=== PATIENT | female | born 1980 | race Caucasian/White ===

== ENCOUNTER 2021-04-04 10:09 | Day surgery (SDC) | payer OTHER ==
[2021-04-01 10:48] LABS: Absolute Lymphocytes (CBC) 1.8 K/uL (0.7-4.9); Basophils % 1.3 % (0-1.3); Hematocrit 36.7 % (36.0-45.0); Lymphocytes % 26.5 % (15.3-44.8); RBC Red Blood Cell Count 4.05 M/uL (3.86-4.86)
[2021-04-04] MEDS ORDERED: Ringers Lactate 1,000 ML IV ONE (10:39)
[2021-04-04] MEDS ORDERED: LIDOCAINE 2% MPF 5 ML VIAL ONE (11:02)
[2021-04-04] MEDS ORDERED: KETOROLAC 30 MG/ML INJ ONE (11:02)
[2021-04-04] MEDS ORDERED: ONDANSETRON 4 MG/2 ML VIAL ONE (11:02)
[2021-04-04] MEDS ORDERED: MIDAZOLAM HCL 2 MG/2 ML INJ ONE (11:02)
[2021-04-04] MEDS ORDERED: FENTANYL CITR 100 MCG/2 ML ONE (11:02)
[2021-04-04] MEDS ORDERED: propofoL 200 MG/20 ML VIAL IV ONE (11:02)
[2021-04-04] MEDS ORDERED: CEFAZOLIN/SWI 1gm 0 GM/0 ML SYR ONE (11:24)
--- NOTE | 2021-04-04 11:36 | P.BOP ---
Preoperative diagnosis: left cts Postoperative diagnosis: same Primary procedure: left open ctr Estimated blood loss: 10ccs Anesthesia: General Complications: None Transferred to: Recovery Room Condition: Good
[2021-04-04] MEDS: MEPERIDINE HCL 25 MG/ML SYR ONE ×2 (11:52→11:57)
[2021-04-04] MEDS ORDERED: HYDROCODONE/APAP 7.5/325 MG TAB ONE (12:58)
[2021-04-04 13:45] VITALS: O2SAT 100
[2021-04-04 13:54] VITALS: BP 115/70; TEMP 97.3
--- NOTE | 2021-04-04 21:55 | OP ---
Date of Procedure: 04/04/2021 Surgeon: Sonny Garrison MD Postoperative Diagnosis: Left carpal tunnel syndrome. Postoperative Diagnosis: Left carpal tunnel syndrome. Procedure: Left open carpal tunnel release. Estimated Blood Loss: 10 cc. Complications: None. Pathology Specimen: No pathology specimens sent. Indications For Operation: Ms. Oshea is a patient who came to see me with complaints of an establish ed history of bilateral carpal tunnel syndrome. She has had injections in the carpal tunnel in the p ast and was requesting repeated ones. These were usually just temporarily helpful in my experience, however, she has tried other conservative care. We did inject her carpal tunnel, although she did no t have any significant relief as she has gotten less results from each injection according to her his tory. Risks, benefits, and alternatives of different methods of treatments including the possibility of endoscopic carpal tunnel release for open have been discussed with her. She states she understan ds things as presented. At this time, we opted for open carpal tunnel release on the left. All of h er questions were answered. Description Of Procedure: The patient was taken to the operating room and placed in supine position. General anesthesia was obtained by the staff. Following this, well-padded tourniquet was placed on superior left arm. The left upper extremity was then prepped and draped in the usual fashion for pr justin. Following this, the arm was then elevated, but not exsanguinated. Tourniquet was raised. Incision was made parallel to the thenar crease with an ulnar deviation at the most distal wrist crea se. This was taken down very carefully through skin. Only meticulous hemostasis being maintained us ing bipolar electrocautery. This leads down to the palmar fascia, which was divided longitudinally. Any obstructions of the transverse carpal ligament were then slipped to the side and a small drake wa s made in the transverse carpal ligament, which allowed for placement of a [place] elevator and the tra nsverse carpal ligament was then divided in a very careful fashion from proximal to distal until ther e are no constricting bands. This was followed in a distal to proximal direction until there were no constricting bands including a fairly significant amount of volar forearm fascia. After this was fo und to be no significant bleeding and the contents were found to be in continuity, the tourniquet was then released. She did have some bleeding most likely from venous pressures from the tourniquet, bu t this was controlled using direct pressure and the skin was closed using interrupted nylon sutures. She was then placed in a well-padded sterile dressing, awakened, and taken to recovery room in good condition. No complications. SE/MODL Voice ID: [id number] Report ID: [id number]
== END 2021-04-04 14:00 | disposition home or self-care (01) ==
LOC: OR 10:09
PROVIDERS: ATTEND Orthopaedic Surgery
PROC: 01N50ZZ Release Median Nerve, Open Approach (ICD-10-PCS; principal; 2021-04-04 11:00)
DX: G56.02 Carpal tunnel syndrome, left upper limb (principal); Z20.822 Contact with and (suspected) exposure to COVID-19
CPT/HCPCS: 85025; 80048; 36415; 81025; 64721; U0003; J2704; J2250; J3010; J2175; J7120; J2405; J0690

== ENCOUNTER 2021-08-19 06:32 | Day surgery (SDC) | payer OTHER ==
[2021-08-19] MEDS ORDERED: Ringers Lactate 1,000 ML IV ONE (07:22)
[2021-08-19] MEDS ORDERED: MIDAZOLAM HCL 2 MG/2 ML INJ ONE (07:29)
[2021-08-19] MEDS ORDERED: LIDOCAINE 1% MPF 5 ML VIAL ONE (07:29)
[2021-08-19] MEDS ORDERED: propofoL 200 MG/20 ML VIAL IV ONE ×2 (07:29→08:28)
[2021-08-19] MEDS ORDERED: FENTANYL CITR 100 MCG/2 ML ONE (07:29)
[2021-08-19] MEDS ORDERED: NA CHLORIDE 0.9% 1,000 ML ONE (07:36)
[2021-08-19] MEDS: LIDOCAINE 1% W/EPI 1:100,000 MDV 20 ML VIAL ONE ×2 (08:01→08:08)
[2021-08-19] MEDS ORDERED: CELECOXIB 100 MG CAPSULE ONE (08:13)
[2021-08-19] MEDS ORDERED: ACETAMINOPHEN 500 MG TAB ONE (08:14)
--- NOTE | 2021-08-19 08:28 | P.BOP ---
Preoperative diagnosis: AUB-O/A, dysmenorrhea Postoperative diagnosis: same Primary procedure: hysteroscopy d/c Horse Racer: NONE,NONE Estimated blood loss: min Specimen: EMC Findings: thick anterior wall, no masses, undistorted anteflexed, small cavity Anesthesia: MAC (and PCB) Complications: None Transferred to: Recovery Room Condition: Good
[2021-08-19 09:05] VITALS: BP 113/60
[2021-08-19 09:08] VITALS: TEMP 97.9; O2SAT 96
--- NOTE | 2021-08-19 12:54 | OP ---
Date of Procedure: 08/19/2021 Surgeon: Felipa Francis MD Preoperative Diagnoses: Menorrhagia, dysmenorrhea, dyspareunia. Postoperative Diagnoses: Menorrhagia, dysmenorrhea, dyspareunia. Procedures Performed: Hysteroscopy, D and C. Anesthesia: MAC plus paracervical block. Specimens: Endometrial curettings. Estimated Blood Loss: Minimal. Complications: No complications. Drains: No drains. Condition: Stable. Findings: Undistorted, anteflexed small cavity, thick anterior wall, endometrium. No intracavitary masses. Adequate sampling obtained. The patient's condition is good. Procedure In Detail: After informed consent was verified, the patient was taken back to OR, placed i n supine fashion on the operating table. MAC was given and then she was placed in a dorsal lithotomy position. The patient received a dose of Celebrex preoperatively. No other NSAIDs were given durin g the surgery. After she was placed in a dorsal lithotomy position using Rafy stirrups, pelvic exam was performed. Uterus was anteflexed, small in size. No adnexal masses were palpable. Vulva and v agina were prepped with Betadine. Speculum was placed to expose the cervix. Paracervical block was given with 1% lidocaine mixed with 1:100,000 epinephrine at 12 o'clock on the cervix and at the 4 and 8 o'clock positions of the cervicovaginal junction for a paracervical block. Two Allises were place d on the anterior lip to grasp the cervix. Diagnostic SlimLine hysteroscope passed through the cervi mahesh canal into the uterine cavity under direct vision. Thick anterior wall, no intracavitary masses, undistorted cavity. Scope was pulled out. Endometrial curettings were performed with 0 curette. Sia kaba sent out for permanent pathology. All instruments were removed. Instrument, needle, and spo nge counts were correct at the end of the case. The patient tolerated the procedure well. She will come back to the office review of pathology results. Then, we will discuss about further options mos t likely. An ablation is a good alternative for this patient, but given her dysmenorrhea and dyspare unia possibly combining it with the laparoscopy for possible endo treatment. This probably at least invasive most optimal option and IUD could be used instead of an ablation as well depending on the pa tient's desires. JOJO/ASHLEY Voice ID: [id number] Report ID: [id number]
== END 2021-08-19 09:03 | disposition home or self-care (01) ==
LOC: OR 06:32
PROVIDERS: ATTEND Obstetrics & Gynecology
PROC: 0UJD8ZZ Inspection of Uterus and Cervix, Via Natural or Artificial Opening Endoscopic (ICD-10-PCS; 2021-08-19)
PROC: 0UDB7ZX Extraction of Endometrium, Via Natural or Artificial Opening, Diagnostic (ICD-10-PCS; principal; 2021-08-19 07:30)
DX: N92.0 Excessive and frequent menstruation with regular cycle (principal); N94.6 Dysmenorrhea, unspecified; N94.10 Unspecified dyspareunia; N64.4 Mastodynia; R73.03 Prediabetes; R19.09 Other intra-abdominal and pelvic swelling, mass and lump; Z20.822 Contact with and (suspected) exposure to COVID-19
CPT/HCPCS: 81025; 88305; 58558; U0003; J2704 ×2; J2250; J3010; J7120; J7030

== ENCOUNTER 2021-10-07 08:39 | Day surgery (SDC) | payer OTHER ==
[2021-10-03 11:55] LABS: Urine Appearance CLEAR (Clear); Urine Bilirubin NEGATIVE (Negative); Urine Blood NEGATIVE (Negative); Urine Color YELLOW (Yellow); Urine Glucose NEGATIVE (Negative); Urine Protein NEGATIVE (Negative); Urine Specific Gravity <=1.005 (1.005-1.030); Urine Urobilinogen 0.2 mg/dL (0.2-1.0)
[2021-10-03 11:56] LABS: Urine Microscopic Reflex NO UMIC
[2021-10-03 11:57] LABS: Absolute Lymphocytes (CBC) 2.1 K/uL (0.7-4.9); Basophils % 1.2 % (0-1.3); Lymphocytes % 33.9 % (15.3-44.8); MPV 9.3 fL (7.6-11.3); RBC Red Blood Cell Count 4.17 M/uL (3.86-4.86)
[2021-10-07 08:54] LABS: Specific Gravity 1.015 (1.005-1.030)
[2021-10-07] MEDS ORDERED: LIDOCAINE 1% MPF 5 ML VIAL ONE (08:59)
[2021-10-07] MEDS ORDERED: MIDAZOLAM HCL 2 MG/2 ML INJ ONE (08:59)
[2021-10-07] MEDS ORDERED: FENTANYL CITR 250 MCG/5 ML ONE (08:59)
[2021-10-07] MEDS ORDERED: dexAMETHasone 10 MG/ML VIAL ONE (08:59)
[2021-10-07] MEDS ORDERED: propofoL 200 MG/20 ML VIAL IV ONE (08:59)
[2021-10-07] MEDS ORDERED: ROCURONIUM 50 MG/5 ML VIAL IV ONE (09:05)
[2021-10-07] MEDS ORDERED: ONDANSETRON 4 MG/2 ML VIAL ONE ×2 (09:05→12:55)
[2021-10-07] MEDS ORDERED: Ringers Lactate 1,000 ML IV ONE ×2 (09:09→11:37)
[2021-10-07] MEDS ORDERED: SCOPOLAMINE HYDROBROMIDE PATCH TD ONE (09:09)
[2021-10-07] MEDS ORDERED: CEFAZOLIN/SWI 2gm 2 GM/20 ML SYR ONE (09:09)
[2021-10-07] MEDS ORDERED: ACETAMINOPHEN 500 MG TAB ONE (09:37)
[2021-10-07] MEDS ORDERED: CELECOXIB 100 MG CAPSULE ONE (09:37)
[2021-10-07] MEDS ORDERED: BUPIVACAINE 0.25% PF 30 ML VIAL ONE (10:15)
[2021-10-07] MEDS ORDERED: NA CHLORIDE 0.9% 1,000 ML ONE (10:15)
[2021-10-07] MEDS ORDERED: BUPIVACAINE 0.5% Inj,MDV 50 mL VIAL ONE (10:47)
[2021-10-07] MEDS ORDERED: NS 0.9% VIAL 20 ML ONE (11:43)
[2021-10-07] MEDS ORDERED: VASOPRESSIN 20 UNIT/ML VIAL ONE (11:44)
[2021-10-07] MEDS ORDERED: KETOROLAC 30 MG/ML INJ ONE (11:51)
[2021-10-07] MEDS ORDERED: Mastisol Adhesive Liq ONE (12:16)
[2021-10-07] MEDS ORDERED: MEPERIDINE HCL 25 MG/ML SYR IM PRN (12:20)
[2021-10-07] MEDS ORDERED: PROMETHAZINE INJ 25 MG/ML AMP IV PRN (12:20)
[2021-10-07] MEDS ORDERED: HYDROCODONE/APAP 5/325 MG TAB PO PRN (12:20)
--- NOTE | 2021-10-07 12:28 | P.BOP ---
Preoperative diagnosis: menorrhagia, dysmenorrhea,adnexal mass Postoperative diagnosis: same, leiomyoma, sigmoid and cecal adhesions Primary procedure: Hystsc Endometrial Ablation/ lapsc bilat salpingectomy Secondary procedure: lapsc myomectomyx1, OSITO sigmoid Bellhop: Lin Paul Estimated blood loss: min Specimen: leiomyoma, bilat tubes Findings: normal b/l tubes/ovaries,ant fundal L leiomyoma subserosal,no endo Anesthesia: General Complications: None Fluids & blood products: UO 200 Transferred to: Recovery Room Condition: Good
[2021-10-07] MEDS ORDERED: MEPERIDINE HCL 25 MG/ML SYR ONE ×2 (12:47→13:17)
[2021-10-07] MEDS: MORPHINE 4 MG/ML SYR ONE ×2 (12:57→13:02)
[2021-10-07 13:56] VITALS: TEMP 97.5
[2021-10-07] MEDS ORDERED: HYDROCODONE/APAP 5/325 MG TAB ONE (15:06)
[2021-10-07] MEDS ORDERED: HYDROCODONE/APAP 5/325 MG TAB PO ONE (15:10)
[2021-10-07 16:06] VITALS: BP 130/68; O2SAT 98
[2021-10-07] MEDS ORDERED: GABAPENTIN 300 MG CAP PO SCH (21:00)
[2021-10-07] MEDS ORDERED: clonazePAM 0.5 MG TAB PO SCH (21:00)
[2021-10-07] MEDS ORDERED: ZOLPIDEM TARTRATE 12.5 MG PO SCH (21:00)
[2021-10-08] MEDS ORDERED: SERTRALINE HCL 50 MG TAB PO SCH (09:00)
[2021-10-08] MEDS ORDERED: DRISDOL (VITAMIN D=ERGOCALCIFEROL) 50000 UNIT CAP PO SCH (09:00)
[2021-10-08] MEDS ORDERED: HOME MED 1 EA UNK (Multivitamin [Multivitamin] Tablet) PO SCH (09:00)
[2021-10-08] MEDS ORDERED: LISDEXAMFETAMINE DIMESYLATE 40 MG PO SCH (09:00)
--- NOTE | 2021-10-10 09:38 | OP ---
Date of Procedure: 10/07/2021 Surgeon: Felipa Francis MD Nonprofit Director: Lin Paul. Preoperative Diagnoses: Menorrhagia, dysmenorrhea, and adnexal mass. Postoperative Diagnoses: Menorrhagia, dysmenorrhea, leiomyoma, and no adnexal mass, sigmoid and ceca l adhesions. Procedures Performed: Hysteroscopy, endometrial ablation, laparoscopy, bilateral salpingectomy and l aparoscopic myomectomy x1, lysis of adhesions of the sigmoid. Anesthesia: General endotracheal. Estimated Blood Loss: Minimal. Specimens: Leiomyoma and bilateral tubes. Findings: Normal bilateral tubes and ovaries. Anterior fundal left leiomyoma that was subserosal wa s noted and no endometriosis was noted. On endometrial ablation, the settings were a power of 132 wa tts, time of 105 seconds, length 6 cm with 4 cm. There was adequate ablation effect. Urine Output: 200. Ebl: Minimal. Condition: The patient's condition is good. Procedure In Detail: The patient was consented and taken back to OR, placed in a supine fashion on t he operating table. After 2 g of Ancef was given, she was placed in dorsal lithotomy position. Abdo men, vulva, vagina, and perineum were prepped and draped in a sterile fashion. Positioning was check ed and SCDs were started. Time-out was done. Speculum was placed to expose the cervix. Anterior lip grasped with 2 Allis clamps. The uterus was measured with the help of the ablation measurement device. The total sounding length of 9 cm, cervic al length of 3 cm was noted and then calculated the cavity length of 6 cm was entered into the kelly e and the ablation device was inserted into the uterine cavity and deployed. The width assessment wa s 4 cm. Once these settings were entered, cavity integrity test was done. Once it passed without an y problems after plugging the cervix with the occluder, the ablation cycle was started. There was an uninterrupted ablation cycle for 105 seconds. Once the machine shut off, the device was undeployed in the usual fashion. Hysteroscopy was performed with the help of a diagnostic SlimLine hysteroscope . There was excellent ablation effect in the entire cavity. Probably, the internal os was also cove red at the time of the ablation. However, no other burn at the canal. Uterine manipulator was introduced into the uterus. Lau was placed. This area was then draped. A 1 cm infraumbilical incision was made with a scalpel using the open laparoscopy technique. Fascia was incised and tagged with 0 Vicryl sutures. Peritoneum entered sharply. S-retractors were placed. Amelia introduced and after adequate insufflation, site of entry was checked and was unremarkable. Upper abdominal surfaces, no endometriosis or other lesions and adhesions. In the lower abdominal c avity, there were notable sigmoid adhesions. The appendix appeared to be unremarkable. However, the re were pericecal adhesions to the right lateral abdominal wall. No pelvic adhesions on the cecal si de. However, there were significant sigmoid adhesions in the pelvis, to the tube on the left side, t o the lateral wall, posterior cul-de-sac and the right, so the adhesions also appeared to be dense. The plan was to take the adhesions down, then take the tubes down. No evidence of any endometriosis was noted. 5 suprapubic ports were placed under direct vision. Then, the adhesions were taken down in a systematic fashion by sharp dissection, push-spread technique creating windows and ta sophia down with the help of the LigaSure as well at places to palpate. After the entire layer of adhes ions was taken down, the tube was well visualized. There was no left adnexal mass. There was only a leiomyoma on the anterior abdominal wall. The tubes were also decompress. The tubes were removed f rom the fimbriated end to the proximal end. Both of them were removed and the leiomyoma was injected with dilute vasopressin all around 20 units in 20 cc was mixed and 10 units was used. There was exc ellent hemostasis. After taking this down with the help of the LigaSure cutting and the coagulation, the area was thoroughly irrigated and it was sutured with 3-0 Monocryl suture in a figure-eight fash ion to close the superficial myometrium and the serosa. There was excellent apposition and hemostasi s and no other endometriosis noted on careful examination of the entire pelvic cavity. The specimen bag was placed through the umbilical port using a 5 camera through the side and the fibroid as well a s the tubes were retrieved through here. Thorough irrigation suction performed after hemostasis was checked. All the trocars were removed under direct vision. The bag was pulled out after the umbilic al trocar was pulled out. The fascia at the umbilicus was closed with the help of the tagged 3-0 Bill ryl sutures tied to each other. All the skin incisions were closed with the help of interrupted 3-0 chromic. Manipulator and Lau were removed. Instrument, needle, and sponge counts were correct. A t the end of the case, the patient tolerated the procedure well. She was recovered from anesthesia a nd taken to PACU in a stable condition. JOJO/ASHLEY Voice ID: [id number] Report ID: [id number]
== END 2021-10-07 15:57 | disposition home or self-care (01) ==
LOC: OR 08:39
PROVIDERS: ATTEND Obstetrics & Gynecology
PROC: 0UT74ZZ Resection of Bilateral Fallopian Tubes, Percutaneous Endoscopic Approach (ICD-10-PCS; 2021-10-07)
PROC: 0U5B8ZZ Destruction of Endometrium, Via Natural or Artificial Opening Endoscopic (ICD-10-PCS; 2021-10-07)
PROC: 0UB94ZZ Excision of Uterus, Percutaneous Endoscopic Approach (ICD-10-PCS; principal; 2021-10-07 09:30)
DX: N94.6 Dysmenorrhea, unspecified (principal); R19.09 Other intra-abdominal and pelvic swelling, mass and lump; M54.50 Low back pain, unspecified; D25.9 Leiomyoma of uterus, unspecified; Z20.822 Contact with and (suspected) exposure to COVID-19
CPT/HCPCS: 85025; 36415; 86900; 86850; 81025; 86901; 88305; 81003; 58545; 58661; 58563; U0002; J2704; J2250; J3010; J1100; J2175 ×2; J0690; J7120 ×2; J7030; J2405 ×2

== ENCOUNTER 2023-03-03 16:07 | Emergency (ER) | payer BC, OTHER ==
--- OUTSIDE RECORDS SUMMARY | 2023-03-03 16:09 | XMS REPORT | Continuity of Care Document ---
:1980 Author Organization [facility] t Address [address] [facility] [address] [place] [address] Care Team Providers Name Role Phone Unavailable Unavailable Unavailable Problems This patient has no known problems. Allergies, Adverse Reactions, Alerts This patient has no known allergies or adverse reactions. Medications This patient has no known medications. Procedures This patient has no known procedures. Encounters Start End Encounter Admission Attending Care Care Encounter Source Date/Time Date/Time Type Type Clinicians Facility Department ID 2022-09-23 Outpatient [facility] [id number] Common 15:20:01 [facility] 2022-09-16 Outpatient [facility] [id number] Common 10:42:06 [facility] 2021-11-26 Outpatient [facility] [id number] Common 14:09:15 [id number] [facility] 2023-02-22 2023-02-22 Outpatient [facility] [id number] [place] 12:45:57 12:45:[id number] [place] [address] Results This patient has no known results.
[2023-03-03] MEDS ORDERED: LORazepam 2 MG/ML VIAL ONE ×2 (17:26→21:41)
[2023-03-03 17:36] LABS: Specific Gravity < 1.005 (1.005-1.030); Urine Bilirubin NEGATIVE (Negative); Urine Blood Negative (Negative); Urine Clarity Clear (Clear); Urine Color Colorless (Yellow); Urine Glucose NEGATIVE (Negative); Urine Protein NEGATIVE (Negative); Urine Urobilinogen Normal (Normal); Urine pH 6.5 (5.0-7.0)
[2023-03-03 17:37] LABS: Absolute Lymphocytes (CBC) 3.2 K/uL (0.7-4.9); Hematocrit 37.7 % (36.0-45.0); Lymphocytes % 37.5 % (15.3-44.8); MCV 90.9 fL (80-100); MPV 8.4 fL (7.6-11.3); RBC Red Blood Cell Count 4.15 M/uL (3.86-4.86)
[2023-03-03 17:40] LABS: Protime INR 0.95
[2023-03-03 18:15] LABS: SARS-CoV-2 Antigen Rapid Res Negative (Negative)
[2023-03-03 18:15] LABS: ALT/SGPT 23 U/L (13-56); AST/SGOT 16 U/L (15-37); Alkaline Phosphatase 75 U/L (45-117); BUN Blood Urea Nitrogen 6 mg/dL (7-18); Bicarbonate 25 mEq/L (21-32); Bilirubin Direct 0.1 mg/dL (0-0.2); Bilirubin Total 0.3 mg/dL (0.2-1.0); Glomerular Filtration Rate 100 ml/min (=/>90); Glucose Level 96 mg/dL (74-106); Potassium 3.4 mEq/L (3.5-5.1); Protein, Total 7.5 g/dL (6.4-8.2); Sodium Level 138 mEq/L (136-145)
[2023-03-03 18:36] LABS: Barbiturates NEGATIVE (NEGATIVE); Benzodiazepines NEGATIVE (NEGATIVE); Cocaine NEGATIVE (NEGATIVE); METHAMPHETAM POSITIVE (NEGATIVE); Methadone NEGATIVE (NEGATIVE); Opiates NEGATIVE (NEGATIVE); Phencyclidine NEGATIVE (NEGATIVE); THC Cannibis POSITIVE (NEGATIVE)
--- NOTE | 2023-03-03 20:49 | ER ---
Nurse's Notes [facility] Name: Eva Oshea Age: 42 yrs Sex: Female : 1980 Arrival Date: 03/03/2023 Time: 16:07 Bed 17 Private MD: Diagnosis: Suicidal ideations Presentation: 03/03 16:13 Chief complaint: EMS states: Suicidal ideation. Pt's who is currently in aa5 [facility] called 911 stating was having a mental breakdown and probably overdosed on her medications. 16:13 Coronavirus screen: At this time, the client does not indicate any symptoms associated [facility] with coronavirus-19. Ebola Screen: Patient denies travel to an Ebola-affected area in the 21 days before illness onset. Initial Sepsis Screen: Does the patient meet any 2 criteria? No. Patient's initial sepsis screen is negative. Does the patient have a suspected source of infection? No. Patient's initial sepsis screen is negative. Risk Assessment: Do you want to hurt yourself or someone else? Patient reports desire/thoughts of hurting themselves or someone else. Provider notified. Onset of symptoms was March 03, 2023. 16:13 Acuity: VANDANA 2 aa5 16:13 Method Of Arrival: EMS: [facility] aa5 CORPORATE DEVELOPMENT INTERN: 16:18 LMP N/A - Uterine ablation aa5 Historical: - Allergies: 16:14 No Known Allergies; aa5 - Home Meds: 16:41 Adderall XR Oral [Active]; Klonopin Oral [Active]; gabapentin oral [Active]; Doxepin ld1 Oral [Active]; levothyroxine oral [Active]; losartan oral [Active]; - PMHx: 16:14 Anxiety; Depressive disorder; PTSD; Hypertensive disorder; ADHD; Hypothyroidism; aa5 - PSHx: 16:14 Uterine ablation; aa5 - Immunization history:: Adult Immunizations unknown. - Social history:: Smoking status: Reported history of juuling and/or vaping. Patient uses alcohol, only on a social basis. Patient/guardian denies using street drugs. Screenin:22 [facility] ED Fall Risk Assessment (Adult) History of falling in the last 3 months, ld1 including since admission No falls in past 3 months (0 pts). Abuse screen:. Abuse screen: Denies threats or abuse. Denies injuries from another. Nutritional screening: No deficits noted. Tuberculosis screening: No symptoms or risk factors identified. Assessment: 17:22 General: Appears in no apparent distress. comfortable, Behavior is cooperative, ld1 anxious. Pain: Denies pain. Neuro: Level of Consciousness is awake, alert, obeys commands, Oriented to person, place, time, situation. Cardiovascular: Capillary refill < 3 seconds Patient's skin is warm and dry. Respiratory: Reports Airway is patent Respiratory effort is even, unlabored. GI: Abdomen is flat, non-distended. : No signs and/or symptoms were reported regarding the genitourinary system. EENT: No signs and/or symptoms were reported regarding the EENT system. Derm: No signs and/or symptoms reported regarding the dermatologic system. Musculoskeletal: No signs and/or symptoms reported regarding the musculoskeletal system. 17:25 Reassessment: Sitter placed at bedside. SI documentation completed. Safety precautions ld1 initiated - all items removed from room. Belongs placed with security - belonging list sent with security. Patient denies concerns at this time. Diet tray ordered for dinner. 17:26 Reassessment: Pt states "I am depressed, life has been really hard right now. Marital ld1 problems have made me depressed. I do not think I would kill myself, but I have been so depressed lately." Pt denies taking any pills other than regular daily medications. 19:05 Reassessment: ASSUMED CARE OF PT. PT SLEEPING IN BED. NO DISTRESS NOTED. SITTER T jj7 BEDSIDE. WILL CONTINUE TO MONITOR. 19:26 Reassessment: CINTIA CORTESER WITH [facility] AT BEDSIDE TO SPEAK WITH PT. jlydia 21:00 Reassessment: Reassessment: Patient is alert, oriented x 3, equal unlabored jj7 respirations, skin warm/dry/pink. 21:50 Reassessment: NURSE TO NURSE COMPLETED WITH EVANGELISTA STRANGE AT [facility]. jj7 23:00 Reassessment: PT FEELING ANXIOUS AND CRYING. PROVIDER AWARE. ORDERED MEDS GIVEN. PT goyo7 GIVEN HER BOOK TO READ. SITTER AT BEDSIDE. NO ADDITIONAL NEEDS AT THIS TIME. 03/04 01:00 Reassessment: PT SLEEPING COMFORTABLY IN BED. NO DISTRESS NOTED. SITTER AT BEDSIDE. jj7 03:00 Reassessment: No changes from previously documented assessment. jj7 03:53 Reassessment: NURSE FROM [facility] CALLED TO ASK IF PT WAS STILL COMBATIVE. jj7 NURSE INFORMED THAT PT WAS NEVER COMBATIVE OR UNCOOPERATIVE. NURSE STATES SHE WILL CALL BACK. WHEN ASKED WHAT THEY ARE WAITING ON AND IF PT WAS ACCEPTED. NURSE AT [facility] STATES "WE ARE GOING TO ACCEPT THE PT ONCE I CHECK HER INSURANCE". STATES SHE WILL CALL BACK. 05:00 Reassessment: No changes from previously documented assessment. jj7 05:28 Reassessment: PT HANDOVER GIVEN TO JALYN STRANGE. jj7 05:35 Reassessment: eyes closed. Respiratory: Airway is patent Respiratory effort is even, ha1 unlabored. 06:10 Reassessment: eyes closed. Respiratory: Airway is patent Respiratory effort is even, ha1 unlabored, Respiratory pattern is regular, symmetrical. 07:00 Reassessment: See paper chart for Safe Care of Suicidal Patient forms. . aa5 Psych: 03/03 17:00 [place] Suicide Severity Screening: In the past month, have you wished you were ld1 or wished you could go to sleep and not wake up? Patient responds "yes." "In the past month, have you actually had any thoughts of killing yourself?" Patient responds "yes." "In your lifetime, have you ever done anything, started to do anything, or prepared to do anything to end your life?" Patient responds "yes.". Subjective: Patient's mood is sad. Objective: Speech is normal. Interventions: Removed personal items and placed in bag. Patient placed in hospital gown. Searched person for dangerous items. Urine collected and sent for urine drug test. Belonging list filled out. 17:00 Safety Checks: Personal items have been removed. Door is open. No visitors are present ld1 at this time. Pt denies substance abuse. Commitment: Patient will be a voluntary commitment. Vital Signs: 16:13 BP 125 / 75; Pulse 102; Resp 16 S; Temp 98(TE); Pulse Ox 99% on R/A; Weight 72.57 kg aa5 (R); Height 5 ft. 3 in. (R); 17:22 Temp 97.7; ld1 17:22 Weight 76.66 kg; Height 5 ft. 5 in. ; Pain 0/10; ld1 17:24 Pulse 79; Resp 16; Pulse Ox 99% on R/A; ld1 17:26 BP 139 / 82; ld1 22:36 BP 138 / 84; Pulse 85; Resp 16; Temp 98.4; Pulse Ox 97% ; jj7 0504 07:30 BP 137 / 94; Pulse 73; Resp 16; Temp 97.3; Pulse Ox 98% on R/A; bc6 03/03 17:22 Body Mass Index 28.12 (76.66 kg, 165.1 cm) ld1 17:22 Pain Scale: Adult ld1 ED Course: 03/03 16:13 Patient arrived in ED. aa5 16:13 Yumiko Sevilla FNP-C is PHCP. kb 16:13 Rei Sal MD is Attending Physician. kb 16:13 Arm band placed on. aa5 16:17 Triage completed. aa5 16:35 Emy Stoddard RN is Primary Nurse. ld1 17:21 Inserted saline lock: 22 gauge in right antecubital area, using aseptic technique. ld1 Blood collected. 17:22 Patient has correct armband on for positive identification. Bed in low position. Call ld1 light in reach. Side rails up X2. classroom monitor on. Pulse ox on. NIBP on. Sitter at bedside. Noise minimized. Warm blanket given. Diet tray ordered. 17:22 No provider procedures requiring assistance completed. ld1 17:24 Safety Checks: Personal items have been removed. Sitter present at this time. ld1 18:02 contacted [facility] to have a screener evaluate pt. bd 18:41 PHCP role handed off by Yumiko Sevilla FNP-C cp 18:41 Rei Taylor PA is PHCP. cp 03/04 05:35 Report received from ALIE BARNES. ha1 06:28 administrative approval given by Nohemi New/ [facility]. Go has accepted the patient in transfer/. 07:06 Report given to ALIE Hills. ha1 Administered Medications: 03/03 17:21 Drug: Ativan IVP 1 mg Route: IVP; Site: right antecubital; ld1 18:06 Follow up: Response: No adverse reaction; Anxiety decreased ld1 21:42 Drug: Ativan IVP 1 mg Route: IVP; Site: right antecubital; jj7 03/04 01:24 Follow up: Response: No adverse reaction; No change in condition jj7 03/03 22:57 Drug: Geodon IM 10 mg Route: IM; Site: right gluteus; jj7 03/04 01:24 Follow up: Response: Marked relief of symptoms jj7 08:21 Not Given (Patient Refused): Wellbutrin PO 150 mg PO once aa5 Medication: 03/03 17:22 VIS not applicable for this client. ld1 Outcome: 20:49 ER care complete, transfer ordered by MD. soni 03/04 08:22 Patient left the ED. aa5 Signatures: Yumiko Sevilla, EDIS ALLAN-Josefa Melendez Audri RN RN aa5 Rei Taylor PA PA cp Botello, Elizabeth eb Sims, Lauren, RN RN ld1 Jalyn Holt RN RN ha1 Holden Araya RN RN jj7 Kathie Gamez 6 Corrections: (The following items were deleted from the chart) 03/03 22:31 21:00 Reassessment: jj7 jj7
--- NOTE | 2023-03-03 20:49 | EDPHYS ---
Physician Documentation [facility] Name: Eva Oshea Age: 42 yrs Sex: Female : 1980 Arrival Date: 03/03/2023 Time: 16:07 Bed 17 Private MD: ED Physician Rei Sal HPI: 03/03 17:55 This 42 yrs old Female presents to ER via EMS with complaints of Suicidal Ideation. kb 17:55 The patient presents to the emergency department with depression, over a relationship, kb suicide ideation, but the patient has no formulated plan. Onset: The symptoms/episode began/occurred today. Past psychiatric history: Prior diagnosis: depression. Associated signs and symptoms: Pertinent positives; depression, suicide ideation. Severity of symptoms: At their worst the symptoms were moderate in the emergency department the symptoms are unchanged. The patient has experienced similar episodes in the past. The patient has not recently seen a physician. Pt reports she is depressed due to marital problems and the thought of suicide has crossed her mind. States "I wouldn't do it because I don't like pain." . 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 - Social history:: Smoking status: Reported history of juuling and/or vaping. Patient uses alcohol, only on a social basis. Patient/guardian denies using street drugs. ROS: 17:54 Constitutional: Negative for fever, chills, and weight loss. kb 17:54 Psych: Positive for depression, suicidal ideation. 17:54 All other systems are negative. Exam: 17:08 Constitutional: This is a well developed, well nourished patient who is awake, alert, kb and in no acute distress. Head/Face: Normocephalic, atraumatic. ENT: Moist Mucous membranes Cardiovascular: Regular rate and rhythm with a normal S1 and S2. No gallops, murmurs, or rubs. No pulse deficits. Respiratory: Respirations even and unlabored. No increased work of breathing. Talking in full sentences Abdomen/GI: Soft, non-tender. No distention Skin: Warm, dry with normal turgor. Normal color. MS/ Extremity: Pulses equal, no cyanosis. Neurovascular intact. Full, normal range of motion. Neuro: Awake and alert, GCS 15, oriented to person, place, time, and situation. Moves all extremities. Normal gait. 17:08 ECG was reviewed by the Attending Physician. 17:08 Psych: Behavior/mood is cooperative, depressed, Affect is calm, Oriented to person, place, time, Patient having thoughts of suicide. Denies suicidal plan. Vital Signs: 16:13 BP 125 / 75; Pulse 102; Resp 16 S; Temp 98(TE); Pulse Ox 99% on R/A; Weight 72.57 kg aa5 (R); Height 5 ft. 3 in. (R); 17:22 Temp 97.7; ld1 17:22 Weight 76.66 kg; Height 5 ft. 5 in. ; Pain 0/10; ld1 17:24 Pulse 79; Resp 16; Pulse Ox 99% on R/A; ld1 17:26 BP 139 / 82; ld1 22:36 BP 138 / 84; Pulse 85; Resp 16; Temp 98.4; Pulse Ox 97% ; jj7 05/ 07:30 BP 137 / 94; Pulse 73; Resp 16; Temp 97.3; Pulse Ox 98% on R/A; bc6 03/03 17:22 Body Mass Index 28.12 (76.66 kg, 165.1 cm) ld1 17:22 Pain Scale: Adult ld1 MDM: 03/03 16:14 Patient medically screened. kb 17:54 Data reviewed: vital signs, nurses notes. kb 17:55 Differential diagnosis: depression, suicidal ideation, acute stress reaction. kb 18:19 ED course: Pt is medically cleared. [facility] called for evaluation and recommendation.kb 03/03 16:14 Order name: Acetaminophen; Complete Time: 18:19 kb 03/03 16:14 Order name: Basic Metabolic Panel; Complete Time: 18:19 kb 03/03 16:14 Order name: CBC with Diff; Complete Time: 17:49 kb 03/03 16:14 Order name: ETOH Level; Complete Time: 18:11 kb 03/03 16:14 Order name: Hepatic Function; Complete Time: 18:19 kb 03/03 16:14 Order name: PT-INR; Complete Time: 17:43 kb 03/03 16:14 Order name: Ptt, Activated; Complete Time: 17:43 kb 03/03 16:14 Order name: Salicylate; Complete Time: 18:11 kb 03/03 16:14 Order name: Urinalysis w/ reflexes; Complete Time: 17:43 kb 03/03 16:14 Order name: Urine Drug Screen; Complete Time: 18:39 kb 03/03 17:09 Order name: SARS-COV-2 Antigen Rapid; Complete Time: 18:19 kb 03/03 17:47 Order name: Test Serum, [place]; Complete Time: 17:56 EDMS 03/03 16:14 Order name: EKG; Complete Time: 16:15 kb 03/03 17:16 Order name: Diet Finger Food; Complete Time: 17:17 ld1 03/04 05:47 Order name: Finger Food EDMS 03/04 07:03 Order name: Diet Finger Food; Complete Time: 07:04 bc6 03/03 16:14 Order name: EKG - Nurse/Tech; Complete Time: 17:22 kb 03/03 16:14 Order name: IV Saline Lock; Complete Time: 17:22 kb 03/03 16:14 Order name: Labs collected and sent; Complete Time: 17:22 kb 03/03 16:14 Order name: Suicide Precautions; Complete Time: 16:40 kb 03/03 16:14 Order name: Suicide Screening ([place]); Complete Time: 17:22 kb EC:08 Rate is 93 beats/min. Rhythm is regular. QRS [place] is Normal. MI interval is normal at kb 162 msec. QRS interval is normal at 98 msec. QT interval is normal at 452 msec. Administered Medications: 17:21 Drug: Ativan IVP 1 mg Route: IVP; Site: right antecubital; ld1 18:06 Follow up: Response: No adverse reaction; Anxiety decreased ld1 21:42 Drug: Ativan IVP 1 mg Route: IVP; Site: right antecubital; jj7 05 01:24 Follow up: Response: No adverse reaction; No change in condition jj7 03/03 22:57 Drug: Geodon IM 10 mg Route: IM; Site: right gluteus; jj7 03/04 01:24 Follow up: Response: Marked relief of symptoms j7 08:21 Not Given (Patient Refused): Wellbutrin PO 150 mg PO once aa5 Disposition: 06:32 Co-signature as Attending Physician, Ildefonso Galicia MD I agree with the assessment and kdr plan of care. Disposition Summary: 03/03/23 20:49 Transfer Ordered Transfer Location: [facility] cp Reason: Higher level of care cp Condition: Stable cp Problem: new cp Symptoms: are unchanged cp Accepting Physician: Dr. Go(03/04/23 08:22) aa5 Diagnosis - Suicidal ideations cp Forms: - Medication Reconciliation Form cp - SBAR form cp Signatures: Dispatcher [employer] EDNE Yumiko Sevilla, WAITER/WAITRESS TOURIST CLASS-C WAITER/WAITRESS TOURIST CLASS-CkIldefonso Conner MD MD kdr Nieto, Roman, MD MD rn Calderon, Audri RN RN aa5 Rei Taylor PA PA cp Emy Stoddard RN RN ld1 Holden Araya RN RN jj7 Corrections: (The following items were deleted from the chart) 03/03 17:46 16:15 Test, Urine+UC.LAB.BRZ ordered. EDNE EDMS 03/04 06:32 03/03 20:49 Doctor cp kdr 03/04 08:22 06:32 Dr. Go [facility] aa5
[2023-03-03] MEDS ORDERED: ZIPRASIDONE MESYLA 20 MG/VIAL IM ONE (22:58)
[2023-03-03] MEDS ORDERED: WATER FOR INJ,STERILE 10 ML ONE (22:59)
[2023-03-04] MEDS ORDERED: buPROPion HCL 100 MG TAB PO ONE (08:00)
[2023-03-04 08:52] VITALS: BP 137/94; TEMP 97.3; O2SAT 98
== END 2023-03-04 08:22 ==
LOC: ER 16:07 → EEVIPCON 16:07 → ER 03-04 08:22
DX: R45.851 Suicidal ideations (principal); F43.10 Post-traumatic stress disorder, unspecified; I10 Essential (primary) hypertension; F32.A Depression, unspecified; Z20.822 Contact with and (suspected) exposure to COVID-19
CPT/HCPCS: 85025; 80048; 36415; 84703; 85610; 80076; 85730; 81003; 80307; 87811; J3486; G0480 ×3